=== PATIENT | female | born 1940 | race Caucasian/White ===

== ENCOUNTER 2022-01-15 11:19 | Emergency (ER) | payer MEDICARE, MEDICAID ==
[~2022-01-15 11:19] MED LIST: ZANTAC150 MG PO
[2022-01-15 13:00] LABS: RED BLOOD COUNT 4.18 M/UL (4.00-5.10); WHITE BLOOD COUNT 6.1 K/UL (4.5-11.0)
== END 2022-01-16 00:58 | disposition home or self-care (01) ==
LOC: ER1 11:19
PROVIDERS: Physician Assistant
DX: U07.1 COVID-19 (principal); J18.9 Pneumonia, unspecified organism; K63.89 Other specified diseases of intestine; K92.0 Hematemesis; K59.00 Constipation, unspecified; K21.9 Gastro-esophageal reflux disease without esophagitis; I12.9 Hypertensive chronic kidney disease with stage 1 through stage 4 chronic kidney disease, or unspecified chronic kidney disease; N18.9 Chronic kidney disease, unspecified
CPT/HCPCS: 71045; 71250; 80053; 82550; 82553; 83605; 83690; 83874; 84132; 84484; 85025; 87040; 93005; 94664; 94760; 96374; 96375; 96376; 99285; C9113; J0696; J2185; J2405